=== PATIENT | female | born 1935 | race Caucasian/White ===

== ENCOUNTER 2022-10-04 09:57 | Observation (INO) | payer MEDICARE ==
[2022-10-04 10:50] LABS: #Basophils 0.2 thou/uL (0.0-0.2); #Eosinphils 0.3 thou/uL (0.0-0.7); #Neutrophils 6.8 thou/uL (1.40-6.50); %Basophils 1.4 % (0.0-1.0); %Eosinophils 2.7 % (0.0-10.0); %Lymphocytes 23.4 % (21.0-51.0); %Monocytes 9.6 % (0.0-10.0); %Neutrophils 62.7 % (42.0-75.0); Hemoglobin 12.9 g/dL (12.0-16.0); Mean Corpuscular HGB CONC 31.2 g/dL (32.0-36.0); Mean Corpuscular Hemoglobin 30.4 pg (27.0-31.0); Mean Corpuscular Volume 97.4 fl (78.0-98.0); Mean Platelet Volume 9.5 fL (7.4-10.4); Platelet Count 315 10x3/uL (130-400); RBC Distribution Width 14.6 % (11.5-14.5); Red Blood Cell (RBC) Count 4.24 mill/uL (4.20-5.40); White Blood Cell (WBC) Count 10.9 10x3/uL (4.8-10.8)
[2022-10-04 11:40] LABS: ALT (SGPT) 13 U/L (8-55); AST (SGOT) 16 U/L (5-34); Albumin 3.6 g/dL (3.4-4.8); Alkaline Phosphatase 73 U/L (40-110); Anion Gap 20 mmol/L (10-20); BUN (Urea Nitrogen) 22 mg/dL (9.8-20.1); Bilirubin, Total 0.4 mg/dL (0.2-1.2); CK (CPK) 32 U/L (29-168); Calc. Creatinine Clearance 0 mL/min (70-130); Calcium 9.2 mg/dL (7.8-10.44); Carbon Dioxide 22 mmol/L (23-31); Chloride 101 mmol/L (98-107); Estimated GFR 49; Globulin 3.3 g/dL (2.4-3.5); Glucose 207 mg/dL (83-110); Potassium 4.1 mmol/L (3.5-5.1); Protein, Total 6.9 g/dL (5.8-8.1); Sodium 139 mmol/L (136-145)
[2022-10-04] MEDS ORDERED: Glucagon 1 MG/ML KIT IM PRN (13:42)
[2022-10-04] MEDS ORDERED: Dextrose 5% in Water 1,000 ML IV PRN (13:42)
[2022-10-04] MEDS ORDERED: Dextrose 50% Abboject 50 ML SYRINGE SLOW IVP PRN (13:42)
[2022-10-04] MEDS ORDERED: HumaLOG 300 UNITS/3 ML VIAL SC PRN (13:44)
[2022-10-04 15:10] LABS: Hemoglobin A1c 6.9 % (4.0-6.0)
[2022-10-04] MEDS ORDERED: Amlodipine 10 MG TAB PO SCH (16:31)
[2022-10-04] MEDS ORDERED: Hydrochlorothiazide 25 MG TAB PO SCH (16:31)
[2022-10-04 16:55] LABS: Troponin I Less than 0.010 ng/mL (< 0.028)
[2022-10-04 19:31] VITALS: BMI 26.2
[2022-10-04] MEDS ORDERED: Gabapentin 100 MG CAP PO SCH (21:00)
[2022-10-04] MEDS ORDERED: Atorvastatin Calcium 40 MG TAB PO SCH (21:00)
[2022-10-05 05:14] LABS: #Basophils 0.2 thou/uL (0.0-0.2); #Eosinphils 0.4 thou/uL (0.0-0.7); #Monocytes 1.1 thou/uL (0.11-0.59); #Neutrophils 6.1 thou/uL (1.40-6.50); %Basophils 1.4 % (0.0-1.0); %Eosinophils 3.6 % (0.0-10.0); %Lymphocytes 27.7 % (21.0-51.0); %Monocytes 10.1 % (0.0-10.0); %Neutrophils 56.8 % (42.0-75.0); Hemoglobin 12.8 g/dL (12.0-16.0); Mean Corpuscular HGB CONC 31.8 g/dL (32.0-36.0); Mean Platelet Volume 9.5 fL (7.4-10.4); Platelet Count 345 10x3/uL (130-400); RBC Distribution Width 14.4 % (11.5-14.5); Red Blood Cell (RBC) Count 4.27 mill/uL (4.20-5.40); White Blood Cell (WBC) Count 10.7 10x3/uL (4.8-10.8)
[2022-10-05 05:38] LABS: Mean Corpuscular Volume 94.1 fl (78.0-98.0)
[2022-10-05 05:39] LABS: Delete Auto Diff?? NO
[2022-10-05 05:42] LABS: Anion Gap 16 mmol/L (10-20); BUN (Urea Nitrogen) 24 mg/dL (9.8-20.1); Calc. Creatinine Clearance 36 mL/min (70-130); Calcium 9.6 mg/dL (7.8-10.44); Carbon Dioxide 27 mmol/L (23-31); Chloride 100 mmol/L (98-107); Cholesterol 164 mg/dl (< 200 Desired); Estimated GFR 44; Glucose 145 mg/dL (83-110); HDL Cholesterol 41 mg/dL (>60 Neg Risk); LDL Cholesterol, Calculated 77 mg/dL; Sodium 139 mmol/L (136-145); Triglycerides 231 mg/dL (Less than 150)
[2022-10-05] MEDS ORDERED: Levothyroxine Sodium 112 MCG TAB PO SCH (06:00)
[2022-10-05] MEDS ORDERED: Amlodipine 10 MG TAB PO SCH ×2 (09:00)
[2022-10-05] MEDS ORDERED: Famotidine 20 MG TAB PO SCH (09:00)
[2022-10-05] MEDS ORDERED: Hydrochlorothiazide 25 MG TAB PO SCH ×2 (09:00)
[2022-10-05] MEDS ORDERED: Aspirin 81 mg Enteric Coated Tablet PO SCH (09:00)
[2022-10-05] MEDS ORDERED: Lisinopril 2.5 MG TAB PO SCH (09:00)
[2022-10-05] MEDS ORDERED: FLUoxetine HCl 20 MG CAP PO SCH (09:00)
[2022-10-05 16:42] VITALS: BP 130/69; TEMP 97.5
== END 2022-10-05 17:20 ==
LOC: ERS 09:57 → ERHOLD 12:52 → 2NO 18:58
PROVIDERS: ADMIT Family Medicine; ATTEND Family Medicine
DX: R07.89 Other chest pain (principal); I48.91 Unspecified atrial fibrillation; I44.2 Atrioventricular block, complete; E78.5 Hyperlipidemia, unspecified; E11.9 Type 2 diabetes mellitus without complications; I10 Essential (primary) hypertension; K21.9 Gastro-esophageal reflux disease without esophagitis; E03.9 Hypothyroidism, unspecified; R09.02 Hypoxemia; Z79.82 Long term (current) use of aspirin; Z79.84 Long term (current) use of oral hypoglycemic drugs; Z79.890 Hormone replacement therapy; Z79.899 Other long term (current) drug therapy; Z86.73 Personal history of transient ischemic attack (TIA), and cerebral infarction without residual deficits; Z88.8 Allergy status to other drugs, medicaments and biological substances; Z95.0 Presence of cardiac pacemaker
CPT/HCPCS: 71045; 80048; 80061; 82550; 82962 ×2; 83036; 83880; 84484 ×2; 85025; 93005; 96372; 97116; 99285; G0378 ×3; 36415; 36416; 80053; 84443; J1650; J1815

== ENCOUNTER 2022-11-16 14:42 | Inpatient (IN) | payer MEDICARE ==
[~2022-11-16 14:42] MED LIST: Iopamidol-370 76% 500 ML MDV (1 ML CHARGE) ONE
[2022-11-16] MEDS ORDERED: Dexamethasone 10 MG/ML VIAL ONE (15:24)
[2022-11-16 15:34] LABS: #Basophils 0.1 thou/uL (0.0-0.2); #Eosinphils 0.2 thou/uL (0.0-0.7); #Monocytes 0.8 thou/uL (0.11-0.59); #Neutrophils 5.2 thou/uL (1.40-6.50); %Basophils 1.3 % (0.0-1.0); %Eosinophils 2.5 % (0.0-10.0); %Lymphocytes 28.1 % (21.0-51.0); %Monocytes 9.2 % (0.0-10.0); %Neutrophils 58.5 % (42.0-75.0); Hematocrit 36.4 % (36.0-47.0); Hemoglobin 11.8 g/dL (12.0-16.0); Mean Corpuscular HGB CONC 32.4 g/dL (32.0-36.0); Mean Corpuscular Hemoglobin 30.6 pg (27.0-31.0); Mean Corpuscular Volume 94.5 fl (78.0-98.0); Mean Platelet Volume 9.9 fL (7.4-10.4); Platelet Count 295 10x3/uL (130-400); RBC Distribution Width 14.6 % (11.5-14.5); Red Blood Cell (RBC) Count 3.85 mill/uL (4.20-5.40)
[2022-11-16 15:52] LABS: INR-International Normal Ratio 0.9; Prothrombin Time 12.8 sec (12.0-14.7)
[2022-11-16 16:10] LABS: ALT (SGPT) 13 U/L (8-55); AST (SGOT) 14 U/L (5-34); Albumin 3.6 g/dL (3.4-4.8); Alkaline Phosphatase 70 U/L (40-110); Anion Gap 16 mmol/L (10-20); BUN (Urea Nitrogen) 28 mg/dL (9.8-20.1); Bilirubin, Total 0.4 mg/dL (0.2-1.2); Calc. Creatinine Clearance 0 mL/min (70-130); Calcium 9.1 mg/dL (7.8-10.44); Carbon Dioxide 22 mmol/L (23-31); Chloride 100 mmol/L (98-107); Estimated GFR 58; Globulin 2.9 g/dL (2.4-3.5); Glucose 147 mg/dL (83-110); Lipase 59 U/L (8-78); Magnesium 1.7 mg/dL (1.6-2.6); Protein, Total 6.5 g/dL (5.8-8.1); Sodium 134 mmol/L (136-145)
[2022-11-16 16:13] LABS: Troponin I Less than 0.010 ng/mL (< 0.028)
[2022-11-16] MEDS ORDERED: diphenhydrAMINE 12.5 MG/5 ML UDCUP ONE (16:49)
[2022-11-16] MEDS ORDERED: Famotidine/PF 20 mg/2ml Vial ONE (16:49)
[2022-11-16] MEDS ORDERED: diphenhydrAMINE 50 MG/ML VIAL ONE (16:50)
[2022-11-16] MEDS ORDERED: Insulin Regular 300 UNITS/3 ML VIAL SC PRN (18:16)
[2022-11-16] MEDS ORDERED: Dextrose 50% Abboject 50 ML SYRINGE SLOW IVP PRN (18:16)
[2022-11-16] MEDS ORDERED: Dextrose 5% in Water 1,000 ML IV PRN (18:16)
[2022-11-16] MEDS ORDERED: Glucagon 1 MG/ML KIT IM PRN (18:16)
[2022-11-16] MEDS ORDERED: diphenhydrAMINE 12.5 MG/5 ML UDCUP PO PRN (18:18)
[2022-11-16] MEDS ORDERED: diphenhydrAMINE 50 MG/ML VIAL IVP PRN (18:30)
[2022-11-16 22:32] VITALS: BMI 28.5
[2022-11-16] MEDS: Famotidine/PF 20 mg/2ml Vial SLOW IVP SCH (23:08)
[2022-11-16] MEDS: methylPREDNISolone Sod Succ 40 MG VIAL IVP SCH (23:08)
[2022-11-16] MEDS: Sodium Chloride 0.9% 1,000 ML IV SCH (23:08)
[2022-11-17] MEDS: Sodium Chloride 0.9% 1,000 ML IV SCH ×2 (01:43→07:22)
[2022-11-17] MEDS: methylPREDNISolone Sod Succ 40 MG VIAL IVP SCH ×2 (05:22→11:49)
[2022-11-17 06:57] LABS: #Monocytes 0.1 thou/uL (0.11-0.59); #Neutrophils 10.9 thou/uL (1.40-6.50); %Basophils 0.3 % (0.0-1.0); %Lymphocytes 12.9 % (21.0-51.0); %Monocytes 0.7 % (0.0-10.0); %Neutrophils 85.5 % (42.0-75.0); Hematocrit 38.8 % (36.0-47.0); Hemoglobin 12.3 g/dL (12.0-16.0); Mean Corpuscular HGB CONC 31.7 g/dL (32.0-36.0); Mean Corpuscular Volume 94.6 fl (78.0-98.0); Mean Platelet Volume 9.9 fL (7.4-10.4); Platelet Count 308 10x3/uL (130-400); RBC Distribution Width 14.7 % (11.5-14.5); White Blood Cell (WBC) Count 12.7 10x3/uL (4.8-10.8)
[2022-11-17 07:24] LABS: Anion Gap 19 mmol/L (10-20); BUN (Urea Nitrogen) 28 mg/dL (9.8-20.1); Calc. Creatinine Clearance 48 mL/min (70-130); Calcium 9.2 mg/dL (7.8-10.44); Carbon Dioxide 18 mmol/L (23-31); Chloride 103 mmol/L (98-107); Estimated GFR 56; Glucose 220 mg/dL (83-110); Potassium 3.9 mmol/L (3.5-5.1); Sodium 136 mmol/L (136-145)
[2022-11-17] MEDS: Loratadine 10 MG TAB PO SCH ×2 (08:12→08:22)
[2022-11-17] MEDS: Famotidine/PF 20 mg/2ml Vial SLOW IVP SCH (08:14)
[2022-11-17] MEDS ORDERED: Insulin Regular 300 UNITS/3 ML VIAL SC PRN ×2 (13:09→13:22)
[2022-11-17] MEDS ORDERED: Polyethylene Glycol 3350 17 GM Packet PO PRN (13:18)
[2022-11-17] MEDS ORDERED: Nitroglycerin 0.4 MG TAB (25 Tab Bottle) SL PRN ×2 (13:20→17:47)
[2022-11-17] MEDS ORDERED: Aspirin Chewable 81 MG TAB PO SCH (13:30)
[2022-11-17] MEDS ORDERED: Loperamide HCl 2 MG CAP PO PRN (13:46)
[2022-11-17 14:32] LABS: Troponin I 0.089 ng/mL (< 0.028)
[2022-11-17] MEDS ORDERED: Magnesium 2 GM/50 ML(in water) 2 GM in Premix Bag 1 BAG IVPB SCH (16:15)
[2022-11-17] MEDS: predniSONE 20 MG TAB PO SCH (17:07)
[2022-11-17 17:34] LABS: Troponin I 0.779 ng/mL (< 0.028)
[2022-11-17] MEDS: Nitroglycerin 2% Ointment 1 INCH/1 GM Packet TOP SCH (18:45)
[2022-11-17] MEDS: Insulin Regular 300 UNITS/3 ML VIAL SC PRN (19:06)
[2022-11-17] MEDS: Amlodipine 5 MG TAB PO SCH (19:54)
[2022-11-17] MEDS: Gabapentin 100 MG CAP PO SCH (19:54)
[2022-11-17] MEDS: Atorvastatin Calcium 10 MG TAB PO SCH (19:54)
[2022-11-18] MEDS: Nitroglycerin 2% Ointment 1 INCH/1 GM Packet TOP SCH ×3 (02:27→18:03)
[2022-11-18 05:12] LABS: #Monocytes 0.9 thou/uL (0.11-0.59); #Neutrophils 13.4 thou/uL (1.40-6.50); %Basophils 0.1 % (0.0-1.0); %Lymphocytes 7.4 % (21.0-51.0); %Monocytes 5.7 % (0.0-10.0); %Neutrophils 86.1 % (42.0-75.0); Hemoglobin 11.3 g/dL (12.0-16.0); Mean Corpuscular HGB CONC 32.3 g/dL (32.0-36.0); Mean Corpuscular Hemoglobin 30.2 pg (27.0-31.0); Mean Corpuscular Volume 93.6 fl (78.0-98.0); Mean Platelet Volume 10.7 fL (7.4-10.4); Platelet Count 302 10x3/uL (130-400); Red Blood Cell (RBC) Count 3.74 mill/uL (4.20-5.40); White Blood Cell (WBC) Count 15.6 10x3/uL (4.8-10.8)
[2022-11-18 05:42] LABS: Troponin I 4.039 ng/mL (< 0.028)
[2022-11-18 05:45] LABS: Anion Gap 16 mmol/L (10-20); BUN (Urea Nitrogen) 32 mg/dL (9.8-20.1); Calc. Creatinine Clearance 41 mL/min (70-130); Calcium 9.3 mg/dL (7.8-10.44); Carbon Dioxide 21 mmol/L (23-31); Cardiac Risk 3.8 (Less than 4.5); Chloride 105 mmol/L (98-107); Cholesterol 207 mg/dl (< 200 Desired); Estimated GFR 46; Glucose 203 mg/dL (83-110); HDL Cholesterol 55 mg/dL (>60 Neg Risk); LDL Cholesterol, Calculated 128 mg/dL; Potassium 4.6 mmol/L (3.5-5.1); Sodium 137 mmol/L (136-145); Triglycerides 119 mg/dL (Less than 150)
[2022-11-18] MEDS: Insulin Regular 300 UNITS/3 ML VIAL SC PRN (06:14)
[2022-11-18] MEDS: Levothyroxine Sodium 112 MCG TAB PO SCH (06:15)
[2022-11-18] MEDS ORDERED: Sodium Chloride 0.9% 1,000 ML IV SCH (07:45)
[2022-11-18] MEDS: FLUoxetine HCl 20 MG CAP PO SCH (08:01)
[2022-11-18] MEDS: predniSONE 20 MG TAB PO SCH (08:02)
[2022-11-18] MEDS: Magnesium Oxide 400 MG TAB PO SCH (08:02)
[2022-11-18] MEDS: Aspirin 325 mg Enteric Coated Tablet PO SCH (08:02)
[2022-11-18] MEDS: Famotidine 20 MG TAB PO SCH (08:02)
[2022-11-18] MEDS: Cholecalciferol 1,000 UNITS (25 MCG) TAB PO SCH (08:02)
[2022-11-18] MEDS: Amlodipine 5 MG TAB PO SCH ×2 (08:02→20:32)
[2022-11-18] MEDS: Loratadine 10 MG TAB PO SCH (08:03)
[2022-11-18] MEDS ORDERED: Famotidine 20 MG TAB PO SCH (09:00)
[2022-11-18] MEDS ORDERED: Aspirin 81 mg Enteric Coated Tablet PO SCH (09:00)
[2022-11-18] MEDS ORDERED: Famotidine/PF 20 mg/2ml Vial SLOW IVP SCH (09:00)
[2022-11-18 13:26] LABS: Critical Call Chem Troponin I RESULT DECREASING; Troponin I 3.874 ng/mL (< 0.028)
[2022-11-18] MEDS: Atorvastatin Calcium 10 MG TAB PO SCH (20:32)
[2022-11-18] MEDS: Gabapentin 100 MG CAP PO SCH (20:32)
[2022-11-19 04:46] LABS: #Basophils 0.1 thou/uL (0.0-0.2); #Monocytes 1.7 thou/uL (0.11-0.59); #Neutrophils 14.8 thou/uL (1.40-6.50); %Basophils 0.3 % (0.0-1.0); %Eosinophils 0.1 % (0.0-10.0); %Lymphocytes 10.8 % (21.0-51.0); %Monocytes 8.8 % (0.0-10.0); %Neutrophils 78.7 % (42.0-75.0); Hematocrit 37.6 % (36.0-47.0); Hemoglobin 12.3 g/dL (12.0-16.0); Mean Corpuscular HGB CONC 32.7 g/dL (32.0-36.0); Mean Corpuscular Hemoglobin 30.9 pg (27.0-31.0); Mean Corpuscular Volume 94.5 fl (78.0-98.0); Mean Platelet Volume 10.3 fL (7.4-10.4); Platelet Count 274 10x3/uL (130-400); RBC Distribution Width 15.5 % (11.5-14.5); Red Blood Cell (RBC) Count 3.98 mill/uL (4.20-5.40); White Blood Cell (WBC) Count 18.8 10x3/uL (4.8-10.8)
[2022-11-19 05:15] LABS: Anion Gap 16 mmol/L (10-20); BUN (Urea Nitrogen) 29 mg/dL (9.8-20.1); Calc. Creatinine Clearance 48 mL/min (70-130); Carbon Dioxide 19 mmol/L (23-31); Chloride 105 mmol/L (98-107); Estimated GFR 56; Glucose 159 mg/dL (83-110); Potassium 4.3 mmol/L (3.5-5.1); Sodium 136 mmol/L (136-145)
[2022-11-19] MEDS: Levothyroxine Sodium 112 MCG TAB PO SCH (06:17)
[2022-11-19] MEDS: predniSONE 20 MG TAB PO SCH (08:15)
[2022-11-19] MEDS: Magnesium Oxide 400 MG TAB PO SCH (08:15)
[2022-11-19] MEDS: Cholecalciferol 1,000 UNITS (25 MCG) TAB PO SCH (08:15)
[2022-11-19] MEDS: Aspirin 325 mg Enteric Coated Tablet PO SCH (08:17)
[2022-11-19] MEDS: Amlodipine 5 MG TAB PO SCH ×2 (08:20→20:29)
[2022-11-19] MEDS: FLUoxetine HCl 20 MG CAP PO SCH (08:24)
[2022-11-19] MEDS: Famotidine 20 MG TAB PO SCH (08:25)
[2022-11-19] MEDS: Loratadine 10 MG TAB PO SCH (08:25)
[2022-11-19 09:55] LABS: Bilirubin Negative (Negative); Blood, Urine Negative (Negative); Clarity Turbid (Clear); Glucose, Urine (Dipstick) Normal (Negative); Ketone, Urine Negative (Negative); Leukocyte 75 Leu/uL (Negative); Nitrite 2+ (Negative); Protein, Urine (Dipstick) 10 mg/dL (Neg-Trace); RBC/HPF None Seen HPF (0-3); Specific Gravity, Urine 1.026 (1.002-1.036); Squamous Epithelial 0-3 HPF (0-3); Urobilinogen Normal mg/dL (Less than 2); WBC/HPF 0-3 HPF (0-3); pH, Urine 6.5 (5.0-9.0)
[2022-11-19 09:56] LABS: Bacteria/HPF 1+ HPF (None Seen)
[2022-11-19] MEDS ORDERED: Cefdinir 300 MG CAP PO SCH (10:45)
[2022-11-19] MEDS: Insulin Regular 300 UNITS/3 ML VIAL SC PRN ×2 (12:46→17:38)
[2022-11-19] MEDS ORDERED: Furosemide 40 MG TAB PO SCH (13:45)
[2022-11-19] MEDS: Cefdinir 300 MG CAP PO SCH (20:29)
[2022-11-19] MEDS: Atorvastatin Calcium 10 MG TAB PO SCH (20:29)
[2022-11-19] MEDS: Gabapentin 100 MG CAP PO SCH (20:29)
[2022-11-20] MEDS: Levothyroxine Sodium 112 MCG TAB PO SCH (05:50)
[2022-11-20 06:08] LABS: #Eosinphils 0.1 thou/uL (0.0-0.7); #Monocytes 0.9 thou/uL (0.11-0.59); #Neutrophils 6.5 thou/uL (1.40-6.50); %Basophils 0.2 % (0.0-1.0); %Eosinophils 1.1 % (0.0-10.0); %Monocytes 8.8 % (0.0-10.0); %Neutrophils 62.3 % (42.0-75.0); Hematocrit 32.6 % (36.0-47.0); Hemoglobin 10.7 g/dL (12.0-16.0); Mean Corpuscular HGB CONC 32.8 g/dL (32.0-36.0); Mean Corpuscular Hemoglobin 30.7 pg (27.0-31.0); Mean Corpuscular Volume 93.4 fl (78.0-98.0); Mean Platelet Volume 10.4 fL (7.4-10.4); Platelet Count 245 10x3/uL (130-400); RBC Distribution Width 15.2 % (11.5-14.5); Red Blood Cell (RBC) Count 3.49 mill/uL (4.20-5.40); White Blood Cell (WBC) Count 10.5 10x3/uL (4.8-10.8)
[2022-11-20 06:30] LABS: Anion Gap 12 mmol/L (10-20); BUN (Urea Nitrogen) 26 mg/dL (9.8-20.1); Calc. Creatinine Clearance 52 mL/min (70-130); Calcium 8.7 mg/dL (7.8-10.44); Carbon Dioxide 28 mmol/L (23-31); Chloride 104 mmol/L (98-107); Estimated GFR 62; Glucose 144 mg/dL (83-110); Potassium 3.9 mmol/L (3.5-5.1); Sodium 140 mmol/L (136-145)
[2022-11-20] MEDS: FLUoxetine HCl 20 MG CAP PO SCH (08:01)
[2022-11-20] MEDS: Nebivolol HCl 2.5 MG TAB PO SCH (08:02)
[2022-11-20] MEDS: Amlodipine 5 MG TAB PO SCH ×2 (08:02→20:20)
[2022-11-20] MEDS: predniSONE 20 MG TAB PO SCH (08:02)
[2022-11-20] MEDS: Cholecalciferol 1,000 UNITS (25 MCG) TAB PO SCH (08:02)
[2022-11-20] MEDS: Aspirin 325 mg Enteric Coated Tablet PO SCH (08:02)
[2022-11-20] MEDS: Magnesium Oxide 400 MG TAB PO SCH (08:03)
[2022-11-20] MEDS: Famotidine 20 MG TAB PO SCH (08:03)
[2022-11-20] MEDS: Loratadine 10 MG TAB PO SCH (08:03)
[2022-11-20] MEDS: Cefdinir 300 MG CAP PO SCH (10:59)
[2022-11-20] MEDS: Gabapentin 100 MG CAP PO SCH (20:20)
[2022-11-20] MEDS: Atorvastatin Calcium 10 MG TAB PO SCH (20:20)
[2022-11-21] MEDS: Levothyroxine Sodium 112 MCG TAB PO SCH (06:04)
[2022-11-21] MEDS: Cholecalciferol 1,000 UNITS (25 MCG) TAB PO SCH (08:16)
[2022-11-21] MEDS: Aspirin 325 mg Enteric Coated Tablet PO SCH (08:16)
[2022-11-21] MEDS: Amlodipine 5 MG TAB PO SCH (08:17)
[2022-11-21] MEDS: FLUoxetine HCl 20 MG CAP PO SCH (08:17)
[2022-11-21] MEDS: predniSONE 20 MG TAB PO SCH (08:18)
[2022-11-21] MEDS: Nebivolol HCl 2.5 MG TAB PO SCH (08:18)
[2022-11-21] MEDS: Famotidine 20 MG TAB PO SCH (08:18)
[2022-11-21] MEDS: Loratadine 10 MG TAB PO SCH (08:18)
[2022-11-21] MEDS: Magnesium Oxide 400 MG TAB PO SCH (08:25)
[2022-11-21 16:32] VITALS: BP 128/60; TEMP 99
== END 2022-11-21 17:00 | disposition home health service (06) | DRG 915 ==
LOC: ERS 14:42 → T4-A 17:56 → OBSVTOIN 11-17 14:42 → 2SW 11-17 14:50
PROVIDERS: ADMIT Internal Medicine; ATTEND Internal Medicine Critical Care Medicine
DX: T78.3XXA Angioneurotic edema, initial encounter (principal); I21.4 Non-ST elevation (NSTEMI) myocardial infarction; E03.9 Hypothyroidism, unspecified; K21.9 Gastro-esophageal reflux disease without esophagitis; Z51.5 Encounter for palliative care; Z66 Do not resuscitate; E78.00 Pure hypercholesterolemia, unspecified; I12.9 Hypertensive chronic kidney disease with stage 1 through stage 4 chronic kidney disease, or unspecified chronic kidney disease; N18.9 Chronic kidney disease, unspecified; E11.22 Type 2 diabetes mellitus with diabetic chronic kidney disease; F03.90 Unspecified dementia, unspecified severity, without behavioral disturbance, psychotic disturbance, mood disturbance, and anxiety; I25.10 Atherosclerotic heart disease of native coronary artery without angina pectoris; I49.5 Sick sinus syndrome; T46.4X5A Adverse effect of angiotensin-converting-enzyme inhibitors, initial encounter; Z88.8 Allergy status to other drugs, medicaments and biological substances; Z79.82 Long term (current) use of aspirin; Z79.899 Other long term (current) drug therapy; Z79.84 Long term (current) use of oral hypoglycemic drugs; Z95.1 Presence of aortocoronary bypass graft; Z95.0 Presence of cardiac pacemaker; Z86.73 Personal history of transient ischemic attack (TIA), and cerebral infarction without residual deficits; Z98.41 Cataract extraction status, right eye; Z98.42 Cataract extraction status, left eye; I34.0 Nonrheumatic mitral (valve) insufficiency
CPT/HCPCS: 36415; 36416; 70450; 70491; 71045; 80048; 80053; 80061; 81001; 83690; 83735; 83880; 84484; 85025; 85610; 87086; 93005; 93010; 93306; 94760; 96374; 96375; 96376; G0378; J1100; J1200; J1650; J1815; J2920; J3475; J7050; J7512; Q0163; Q9967; S0028